=== PATIENT | female | born 1980 | race Caucasian/White ===

== ENCOUNTER → 2019-06-11 | Outpatient (CLI) | payer BC ==
--- NOTE | 2019-06-11 13:19 | KCIC ---
MRI Brain without contrast History: Recent seizure, dizziness, headache Technique: Multiplanar, multisequential noncontrast MR imaging was performed of the brain. Comparison: None Findings: There is no evidence of recent infarct or cytotoxic edema. The ventricles, sulci, and cisterns are within normal limits in size and configuration. There is incidental cavum septum pellucidum. There is no significant midline shift, intraaxial mass effect, or focal abnormal extra-axial fluid collection. There is no hemosiderin deposition of the brain parenchyma. There are a few small foci of T2 and FLAIR hyperintense signal of the right frontal deep white matter. Hippocampal formations are fairly symmetric in size and signal characteristics. No significant zepeda matter heterotopia or cortical dysplasia is identified. There is preservation of the major intracranial flow-voids at the skull base. There is mild thickening of the bilateral mastoid air cells, right greater than left.The cerebellar tonsils are normal in location. There is no significant abnormality of the pineal gland or pituitary gland. There is very minimal mucosal thickening of the lateral aspect of the left frontal sinusitis. There is some increased CSF signal of the optic nerve sheaths bilaterally. Low signal of the marrow of the clivus is probably due to residual red marrow in a patient this age. Impression: 1. Other than a few small foci of likely nonspecific gliosis of the right frontal white matter, there is no significant intracranial abnormality. Electronically signed by: Esa Barron MD (06/11/2019 1:16 PM) [id number]
== END | disposition home or self-care (01) ==
LOC: KCIC MRI 12:08
PROVIDERS: ATTEND Internal Medicine
DX: J32.1 Chronic frontal sinusitis (principal)
CPT/HCPCS: 70551